=== PATIENT | female | born 1970 | race Caucasian/White ===

== ENCOUNTER 2020-11-30 11:10 | Outpatient (REF) | payer OTHER, SELFPAY ==
[2020-11-30 13:52] LABS: MANUAL DIFF FLAG NO
[2020-11-30 13:58] LABS: Basophils Percent Auto 0.5 % (0-2); Eosinophils Absolute Auto 0.1 X10*3/uL (0.0-0.4); Eosinophils Percent Auto 1.8 % (0-4); Hematocrit 43.8 % (37-47); Hemoglobin 14.7 g/dl (12.0-16.0); Imm Gran Abs Auto 0.02 X10*3/uL (0.00-0.03); Imm Gran Pct Auto 0.3 % (0.0-0.4); Lymphocytes Absolute Auto 2.4 X10*3/uL (1.2-4.9); Lymphocytes Percent Auto 36.8 % (20-40); Mean Corpuscular HGB Conc 33.6 g/dl (31.0-35.0); Mean Corpuscular Hemoglobin 30.5 pg (27.0-33.0); Mean Corpuscular Volume 90.9 fL (80-98); Mean Platelet Volume 9.9 fL (9.4-12.3); Monocytes Absolute Auto 0.5 X10*3/uL (0.1-1.2); Monocytes Percent Auto 8.2 % (2-11); Neutrophils Absolute Auto 3.4 X10*3/uL (2.0-8.3); Neutrophils Percent Auto 52.4 % (45-73); Platelet Count 317 X10*3/uL (160-400); Red Blood Count 4.82 X10*6/uL (4.20-5.50); Red Cell Distribution Width 12.6 % (11.0-16.0); White Blood Count 6.5 X10*3/uL (4.8-10.8)
[2020-11-30 14:23] LABS: Alanine Aminotransferase 33 U/L (0-31); Albumin Level 4.4 g/dL (3.5-5.0); Alkaline Phosphatase 60 U/L (39-117); Anion Gap 13 (12-20); Aspartate Amino Transferase 26 U/L (5-31); Bilirubin Total 0.6 mg/dL (0.0-1.0); Blood Urea Nitrogen 20 mg/dL (9-16); Calcium 9.6 mg/dL (8.4-10.2); Carbon Dioxide 25 mmol/L (22-29); Chloride 107 mmol/L (96-108); Estimated Glomerular Filt Rate > 60; Glucose Fasting 68 mg/dL (60-99); Potassium 4.5 mmol/L (3.3-5.1); Sodium 140 mmol/L (135-145); Total Protein 7.3 g/dL (6.5-8.0)
[2020-12-01 17:56] LABS: Follicle Stimulating Hormone 54.6 mIU/mL; Lutenizing Hormone 41.5 mIU/mL
== END 2020-11-30 11:11 | disposition home or self-care (01) ==
LOC: HO.MANLDS 11:10
PROVIDERS: PCP Physician Assistant; Visit Provider Physician Assistant
DX: Z00.00 Encounter for general adult medical examination without abnormal findings (principal); Z78.0 Asymptomatic menopausal state
CPT/HCPCS: 36415; 80053; 83001; 83002; 85025

== ENCOUNTER 2021-03-22 10:52 | Outpatient (REF) | payer OTHER, SELFPAY ==
[2021-03-22 13:02] LABS: Cholesterol 161 mg/dL; HDL Cholesterol 50 mg/dL; LDL Cholesterol Calculated 98 mg/dl; Triglycerides 67 mg/dL
== END 2021-03-22 10:53 | disposition home or self-care (01) ==
LOC: HO.MANLDS 10:52
PROVIDERS: PCP Physician Assistant; Visit Provider Physician Assistant
DX: Z00.00 Encounter for general adult medical examination without abnormal findings (principal)
CPT/HCPCS: 36415; 80061

== ENCOUNTER 2022-08-22 12:08 | Outpatient (REF) | payer OTHER, SELFPAY ==
[2022-08-22 17:42] LABS: MANUAL DIFF FLAG NO
[2022-08-22 17:58] LABS: Basophils Absolute Auto 0.1 X10*3/uL (0.0-0.2); Basophils Percent Auto 0.7 % (0-2); Eosinophils Absolute Auto 0.1 X10*3/uL (0.0-0.4); Eosinophils Percent Auto 1.7 % (0-4); Hemoglobin 15.4 g/dl (12.0-16.0); Imm Gran Abs Auto 0.02 X10*3/uL (0.00-0.03); Imm Gran Pct Auto 0.3 % (0.0-0.4); Lymphocytes Absolute Auto 2.7 X10*3/uL (1.2-4.9); Lymphocytes Percent Auto 38.6 % (20-40); Mean Corpuscular HGB Conc 32.1 g/dl (31.0-35.0); Mean Corpuscular Hemoglobin 29.7 pg (27.0-33.0); Mean Corpuscular Volume 92.7 fL (80.0-98.0); Mean Platelet Volume 9.7 fL (9.4-12.3); Monocytes Absolute Auto 0.4 X10*3/uL (0.1-1.2); Monocytes Percent Auto 6.2 % (2-11); Neutrophils Absolute Auto 3.7 x10*3/uL (2.0-8.3); Neutrophils Percent Auto 52.5 % (45-73); Platelet Count 315 X10*3/uL (160-400); Red Blood Count 5.18 X10*6/uL (4.20-5.50); Red Cell Distribution Width 12.4 % (11.0-16.0); White Blood Count 7.1 X10*3/uL (4.8-10.8)
[2022-08-22 18:47] LABS: Alanine Aminotransferase 30 U/L (0-31); Albumin Level 4.2 g/dL (3.5-5.0); Alkaline Phosphatase 63 U/L (39-117); Anion Gap 15 (12-20); Aspartate Amino Transferase 22 U/L (5-31); Bilirubin Total 0.6 mg/dL (0.0-1.0); Blood Urea Nitrogen 15 mg/dL (9-16); Calcium 9.6 mg/dL (8.4-10.2); Carbon Dioxide 25 mmol/L (22-29); Chloride 107 mmol/L (96-108); Cholesterol 185 mg/dL; Estimated Glomerular Filt Rate > 60; Glucose Random 85 mg/dL (60-115); HDL Cholesterol 51 mg/dL; LDL Cholesterol Calculated 114 mg/dl; Potassium 4.6 mmol/L (3.3-5.1); Sodium 140 mmol/L (135-145); Total Protein 7.3 g/dL (6.5-8.0); Triglycerides 101 mg/dL
[2022-08-22 18:52] LABS: Free T4 (Free Thyroxine) 0.88 ng/dL (0.71-1.85); Thyroid Stimulating Hormone 2.11 uIU/mL (0.32-4.0)
[2022-08-23 05:27] LABS: Estimated Average Glucose 103 mg/dL; Hemoglobin A1c % 5.2 %
[2022-08-23 06:19] LABS: T4 Thyroxine 7.7 ug/dL (4.5-12.0)
[2022-08-25 13:39] LABS: Thyroglobulin Antibodies <1 IU/mL (< or = 1); Thyroid Peroxidase Antibodies <1 IU/mL (<9)
== END 2022-08-22 12:09 | disposition home or self-care (01) ==
LOC: HO.MANLDS 12:08
PROVIDERS: Visit Provider Physician Assistant
DX: R73.01 Impaired fasting glucose (principal); E78.5 Hyperlipidemia, unspecified; Z83.49 Family history of other endocrine, nutritional and metabolic diseases
CPT/HCPCS: 36415; 80053; 80061; 83036; 84436; 84439; 84443; 85025; 86376; 86800

== ENCOUNTER → 2022-11-30 12:14 | Day surgery (SDC) | payer OTHER, SELFPAY ==
[2022-11-25 14:38] VITALS: BMI 41.9
[2022-11-25 14:54] VITALS: BMI 40.4
--- NOTE | 2022-11-29 08:38 | P.CONAN_ITS ---
Documented by User: Eloise Phillip NP 11/29/22 08:39 HPI - Anesthesia Eval Consult details Narrative: 52yo F for Left Lateral Rectus Eye Muscle Recession,Left Medial Rectus Resection,Right Superior Rectus Recession PCP cleared [facility] Past Medical History Medical History (Updated 11/25/22 @ 14:52 by Daysi Ba, RN) FLOR on CPAP Eczema IFG (impaired fasting glucose) Surgical History Surgical History (Updated 11/25/22 @ 14:34 by Daysi Ba, RN) H/O wisdom tooth extraction H/O LEEP Hx of section Social History Social History (Updated 11/25/22 @ 14:52 by Daysi Ba, RUTHANN) Household Members: Spouse Housing: House Are you a primary childcare center director to a significant other at home: No Do you presently have visiting nurse or other home services: No Patient Tobacco Use Status: Never used Tobacco Use of substances other than those prescribed or required for medical reasons: No Have you been hit, kicked, punched, or otherwise hurt by someone within the past year? If so, by whom?: No Are you DNR?: No Advance Directives: No Advance Directives Information Provided: Yes Advance Directives on File: No Recently lost weight without trying: No Nutrition Risks: No Nutritional Risk Patient : No FDLMP: 02/2021 Meds Allergies Allergy/AdvReac Type Severity Reaction Status Date / Time lidocaine Allergy Flushing Verified 11/29/22 08:05 Home Medications Medication Instructions Recorded Confirmed Last Taken Type betamethasone dipropionate 0.05 % 1 appl topical DAILY 11/25/22 11/25/22 Unknown History topical cream cetirizine 10 mg capsule (Zyrtec) 10 mg PO DAILY PRN Allergy Symptoms 11/25/22 11/25/22 Unknown History magnesium 250 mg tablet 500 mg PO DAILY 11/25/22 11/25/22 Unknown History cwhoiirhtgkx-ftaiwzts-sxtnjp tablet 1 tab PO DAILY 11/25/22 11/25/22 Unknown His tory phentermine 37.5 mg tablet 37.5 mg PO DAILY 11/25/22 11/25/22 Unknown History Exam Exam Date and Time: November 29, 2022 0838 Height,Weight and Vital Signs: Height 5 ft 5 in Weight 110.223 kg Pertinent Lab Results Pertinent Lab Results: Laboratory Tests 08/22/22 12:09 WBC 7.1 Hgb 15.4 Hct 48.0 H Plt Count 315 Sodium 140 Potassium 4.6 Chloride 107 Carbon Dioxide 25 BUN 15 Creatinine 0.80 Assessment and Plan Assessment Anesthesia Assessment: Chart Reviewed Documented by User: Hazel Sewell MD 11/30/22 14:20 [facility] Past Medical History Medical History (Updated 11/25/22 @ 14:52 by Daysi Ba, RUTHANN) FLOR on CPAP Eczema IFG (impaired fasting glucose) Family History Family history of problems with anesthesia: No Surgical History Surgical History (Updated 11/25/22 @ 14:34 by Daysi Ba, RUTHANN) H/O wisdom tooth extraction H/O LEEP Hx of section History of Problems with Anesthesia: No Social History Social History (Updated 11/25/22 @ 14:52 by Daysi Ba RN) Household Members: Spouse Housing: House Are you a primary childcare center director to a significant other at home: No Do you presently have visiting nurse or other home services: No Patient Tobacco Use Status: Never used Tobacco Use of substances other than those prescribed or required for medical reasons: No Have you been hit, kicked, punched, or otherwise hurt by someone within the past year? If so, by whom?: No Are you DNR?: No Advance Directives: No Advance Directives Information Provided: Yes Advance Directives on File: No Recently lost weight without trying: No Nutrition Risks: No Nutritional Risk Patient : No FDLMP: 02/2021 Meds Allergies Allergy/AdvReac Type Severity Reaction Status Date / Time lidocaine Allergy Flushing Verified 11/29/22 08:05 Home Medications Medication Instructions Recorded Confirmed Last Taken Type betamethasone dipropionate 0.05 % 1 appl topical DAILY 11/25/22 11/25/22 Unknown History topical cream cetirizine 10 mg capsule (Zyrtec) 10 mg PO DAILY PRN Allergy Symptoms 11/25/22 11/25/22 Unknown History magnesium 250 mg tablet 500 mg PO DAILY 11/25/22 11/25/22 Unknown History ibhfvbqkhptm-gcklustk-eawzee tablet 1 tab PO DAILY 11/25/22 11/25/22 Unknown History phentermine 37.5 mg tablet 37.5 mg PO DAILY 11/25/22 11/25/22 Unknown History Exam Airway Mallampati Class: II TM Dist: >3cm Neck ROM: Full Heart: rrr Lungs: cta Assessment and Plan Assessment Anesthesia Assessment: Anesthesia Plan Discussed Final Anesthetic Review Family History of Problems with Anesthesia: No History of Problems with Anesthesia: No NPO: Yes ASA Class: II Final Preanesthetic Review: No Changes in Pt Med Stat, Meds/Allgs Chart Reviewed and Consent Obtained/Reviewed Patient Risk: Intermediate Procedure Risk: Intermediate Anesthetic Plan Anesthetic Plan: GA Disposition: Standard PACU
[2022-11-30] VITALS (8 sets, daily range): BP systolic 133–160; BP diastolic 75–96; PULSE 70–87; RESP 16–18; TEMP 36.1–36.8; O2SAT 96–99
[2022-11-30] MEDS: Lactated Ringers 1,000 ML 100 ML IVCONT (13:10)
--- NOTE | 2022-11-30 15:56 | HO.OPHTHAL ---
Ophthalmology Operative Note Date of Service: 11/30/22 Narrative: Diagnosis 1. Exotropia 2. Right hypertropia. Procedures 1. Recession right lateral rectus 9 mm resection right medial rectus 6 mm 3. Recession left inferior rectus [address] Herrera anesthesia general complications none. The patient was brought to the operating room placed under general anesthesia. The eyes were prepped and draped in the usual sterile ophthalmic fashion. A lid speculum was placed in the right eye and a peritomy was created around the lateral rectus. The muscle was hooked and secured with a double-armed Vicryl suture. It was disinserted from the globe and reattached to a position 9 mm behind the original insertion. Conjunctiva was closed with interrupted Vicryl sutures. A peritomy was then made around the medial rectus and the muscle was hooked and secured with a Junior muscle clamp. The overlying fascial attachments were dissected free and a 6 mm resection marked off with cautery. The resection point was secured with a double-armed Vicryl suture and the distal muscle resected. The resection point was then drawn forward to the original insertion and conjunctiva was closed with interrupted Vicryl sutures. The lid speculum was transferred to the left eye where a peritomy was created around the inferior rectus muscle. The muscle was hooked and secured with a double-armed Vicryl suture and disinserted from the globe. It was reattached to a position 2 mm behind the original insertion. Conjunctiva was closed with interrupted Vicryl sutures. The patient was then awoken from general anesthesia and discharged to postoperative recovery in good condition.
[2022-11-30] MEDS: Acetaminophen 325 MG TABLET 650 MG PO (16:40)
== END | disposition home or self-care (01) ==
PROVIDERS: PCP Internal Medicine; Visit Provider Ophthalmology
PROC: (CPT 67314; principal; 2022-11-30 14:10)
DX: H50.112 Monocular exotropia, left eye (principal); H50.21 Vertical strabismus, right eye; R73.01 Impaired fasting glucose; L30.9 Dermatitis, unspecified; G47.33 Obstructive sleep apnea (adult) (pediatric); Z79.51 Long term (current) use of inhaled steroids; Z99.89 Dependence on other enabling machines and devices; Z79.899 Other long term (current) drug therapy; Z88.8 Allergy status to other drugs, medicaments and biological substances
CPT/HCPCS: 67314; 67312; J1100; J2405; J2550; J3010

== ENCOUNTER 2025-01-14 07:39 | Outpatient (REF) | payer OTHER, SELFPAY ==
--- OUTSIDE RECORDS SUMMARY | 2025-01-14 08:02 | XMS_ITS | Encounter Summary ---
Author Organization [facility] Address [address] [place] [address] Phone Care Team Providers Care Weighing Station Operator Name Role Phone Dwayne Palencia DO Unavailable Bina Gonzales CNM Unavailable Mady MeridaC Unavailable [phone] Elmer Alfredo MD Unavailable Salina Grubbs LADLE REPAIRMAN Unavailable Debo Wild MD Unavailable [phone] Mallorie Le MD Unavailable [phone] Shae Crowder LADLE REPAIRMAN Unavailable Dwayne Palencia DO Primary Care Provider [phone] Encounter Details Date Type Department Care Team (Late st Contact Info) Description 09/11/2019 Ancillary Orders Virtual Department [address] [place] [address] Dwayne Palencia DO [address] [facility] [place] [address] [place] [address] Abnormal mammogram Social History Tobacco Use Types Packs/Day Years Used Date Smoking Tobacco: Never Smokeless Tobacco: Never Alcohol Use Standard Drinks/Week Comments Never 0 (1 standard drink = 0.6 oz pur e alcohol) Comments No Sex and Gender Information Value Date Recorded Sex Assigned at Female 10/03/2021 11:46 AM EDT Legal Sex Female 9:37 PM EDT Gender Identity Female 10/03/2021 11:46 AM EDT Sexual Orientation Straight 10/03/2021 11 :46 AM EDT documented as of this encounter Plan of Treatment Upcoming Encounters Date Type Department Care Team (Late st Contact Info) Description 08/30/2024 Procedure Pass [address] [address] 04/14/2025 12:30 PM EDT Appointment [facility] [address] [place] [address] Dwayne Palencia DO [address] [facility] [place] [address] documented as of this encounter Results * BI US BREAST LIMITED (LEFT) (09/30/2019 1:32 PM EDT) Anatomical Region Laterality Modality Breast Left, Breast Bilateral Left Ul trasound 09/30/2019 1:37 PM EDT Impressions 09/30/2019 1:38 PM EDT Lesion demonstrated on mammography represents a simple cyst. The results of this examination were relayed to the patient by the technologist. BI-RADS CATEGORY 2 - BENIGN POS [id number] Narrative 09/30/2019 1:38 PM EDT Comparisons made with current mammographic study. At the approximate 2-3:00 position 5-6 cm from the nipple is a sharply circumscribed anechoic lesion measuring 9 x 4 x 10 mm in span, displaying enhanced through-transmission and satisfying the sonographic criteria for simple cyst. This correlates well in size and location to the mammographic abnormality. Procedure Note Janina Matson MD - 09/30/2019 Comparisons made with current mammographic study. At the approximate2-3:00 position 5-6 cm from the nipple is a sharply circumscribed anechoiclesion measuring 9 x 4 x 10 mm in span, displaying enhancedthrough-transmission and satisfying the sonographic criteria for simplecyst. This correlates well in size and location to the mammographicabnormality. IMPRESSION: Lesion demonstrated on mammography represents a simple cyst. The results of this examination were relayed to the patient by thetechnologist. BI-RADS CATEGORY 2 - BENIGN POS [id number] us Dwayne Palencia DO IMG US BREAST Final Result * BI MAMMOGRAM DIAGNOSTIC WITH TOMOSYNTHESIS NO CAD (LEFT) (09/30/2019 1:00 PM EDT) Anatomical Region Laterality Modality Breast Left Left Mammography 09/30/2019 1:14 PM EDT Impressions 09/30/2019 1:28 PM EDT Lesion demonstrated on 09/09/2019 represents a simple cyst. In the absence of clinically significant findings routine screening mammography would appear adequate for follow-up. The results of this examination were relayed to the patient by the technologist. BI-RADS CATEGORY 2 - BENIGN DENSITY: There are scattered fibroglandular densities. Narrative 09/30/2019 1:28 PM EDT Comparisons made with prior study of 09/09/2019. Full-field mediolateral C view and tomographic images disclose the presence of a sharply circumscribed slightly lobular 9 mm diameter lesion in the upper outer quadrant at the approximate 2:30 o'clock position. This was subsequently assessed on ultrasound and found to represent a simple cyst. us Dwayne Palencia DO IMG MG EXAMS Final Result documented in this encounter Visit Diagnoses Diagnosis Abnormal mammogram Abnormal mammogram, unspecified Abnormal mammogram Abnormal mammogram, unspecified Abnormal mammogram Abnormal mammogram, unspecified documented in this encounter Care Teams Weighing Station Operator Relationship Specialty Start Date End Date Dwayne Palencia DO [email or web address] PCP - General 02/09/17 Dwayne Palencia DO Historical LMR Provider 11/27/16 Bina Gonzales CNM [address] [place] [address] Historical LMR Provider 11/27/16 2 Mady Merida PA-C [address] [place] [address] [facility], [place] [address] Historical LMR Provider 11/27/16 02/13/21 Elmer Alfredo MD [address] [place] [address] Historical LMR Provider 11/27/16 Salina Grubbs NP [address] [place] [address] [email or web address] Historical LMR Provider 11/27/16 2 Debo Wild MD [address] [place] [address] Historical LMR Provider 11/27/16 2 Mallorie Le MD [address] [place] [address] Historical LMR Provider 11/27/16 2 Shae Crowder NP [address] [place] [address] Historical LMR Provider 11/27/16 2 documented as of this encounter Additional Source Comments The information contained in this document represents components of the legal health record. It is not the complete legal health record.[facility]
--- OUTSIDE RECORDS SUMMARY | 2025-01-14 08:02 | XMS_ITS | Encounter Summary ---
Author Organization [facility] Address [address] [place] [address] Phone Care Team Providers Care Clerical Assigner Name Role Phone Dwayne Palencia DO Unavailable Bina Gonzales CNM Unavailable Mady MeridaC Unavailable [phone]- [phone] Elmer Alfredo MD Unavailable Salina Grubbs HAND BOOTMAKER Unavailable Debo Wild MD Unavailable [phone] Mallorie Le MD Unavailable [phone] Shae Crowder HAND BOOTMAKER Unavailable Dwayne Palencia DO Primary Care Provider [phone] Encounter Details Date Type Department Care Team (Late st Contact Info) Description 07/08/2020 Ancillary Orders Virtual Department [address] [place] [address] Dwayne Palencia DO [address] [facility] [place] [address] [email or web address] Breast screening Social History Tobacco Use Types Packs/Day Years [...] st Contact Info) Description 08/30/2024 Procedure Pass [address] [address] 04/14/2025 12:30 PM EDT Appointment [facility] [address] [place] [address] Dwayne Palencia DO [address] [facility] [place] [address] documented as of this encounter Results * BI MAMMOGRAM SCREENING WITH TOMOSYNTHESIS WITH CAD (BILATERAL) (09/21/2020 9:38 AM EDT) Anatomical Region Laterality Modality Breast Left, Breast Right, Breast Bilateral Bila teral Mammography 09/21/2020 11:1 7 AM EDT Impressions 09/21/2020 11:20 AM EDT No findings suspicious for malignancy. In the absence of a worrisome palpable abnormality, annual screening mammography is recommended. BI-RADS CATEGORY: 2 - Benign finding. DENSITY: There are scattered fibroglandular densities. Narrative 09/21/2020 11:20 AM EDT COMPARISON: 01/20/2014 through 09/09/2019. Bilateral 3-D tomosynthesis with 2-D reconstructions in the CC and MLO projection. Computer-aided detection system also utilized. No new mass, asymmetry, architectural distortion or suspicious calcifications have become apparent on either side. Previously proven cyst in the left upper outer quadrant and small circumscribed masses/nodes in the right upper outer quadrant unchanged. Procedure Note Jose Quintero MD - 09/21/2020 COMPARISON: 01/20/2014 through 09/09/2019. Bilateral 3-D tomosynthesis with 2-D reconstructions in the CC and MLOprojection. Computer-aided detection system also utilized. No new mass, asymmetry, architectural distortion or suspiciouscalcifications have become apparent on either side. Previously proven cyst in the left upper outer quadrant and smallcircumscribed masses/nodes in the right upper outer quadrant unchanged. IMPRESSION: No findings suspicious for malignancy. In the absence of a worrisomepalpable abnormality, annual screening mammography is recommended. BI-RADS CATEGORY: 2 - Benign finding. DENSITY: There are scattered fibroglandular densities. us Dwayne Palencia DO IMG MG EXAMS Final Result documented in this encounter Visit Diagnoses Diagnosis Breast screening Breast screening, unspecified Breast screening Breast screening, unspecified documented in this encounter Care Teams Clerical Assigner Relationship Specialty Start Date End Date Dwayne Palencia DO PCP - General 02/09/17 Dwayne Palencia DO Historical LMR Provider 11/27/16 Bina Gonzales CNM [address] [place] [address] Historical LMR Provider 11/27/16 2 Mady Merida PA-C [address] [place] [address] [facility], [place] [address] Historical LMR Provider 11/27/16 02/13/21 Elmer Alfredo MD [address] [place] [address] Historical LMR Provider 11/27/16 Salina Grubbs NP [address] [place] [address] [email or web address] Historical LMR Provider 11/27/16 2 Debo Wild MD [address] [place] [address] Historical LMR Provider 11/27/16 2 Mallorie Le MD [address] [place] [address] Historical LMR Provider 11/27/16 2 Shae Crowder NP [address] [place] [address] Historical LMR Provider 11/27/16 2 documented as of this encounter Additional Source Comments The information contained in this document represents components of the legal health record. It is not the complete legal health record.[facility]
--- OUTSIDE RECORDS SUMMARY | 2025-01-14 08:03 | XMS_ITS | Encounter Summary ---
Author Organization [facility] Address [address] [place] [address] Phone Care Team Providers Care Bike Designer Name Role Phone Dwayne Palencai DO Unavailable Bina Gonzales CNM Unavailable Mady MeridaC Unavailable [phone] Elmer Alfredo MD Unavailable Salina Grubbs COMPUTER OPERATIONS MANAGER Unavailable Debo Wild MD Unavailable Mallorie Le MD Unavailable [phone] Shae Crowder COMPUTER OPERATIONS MANAGER Unavailable Dwayne Palencia DO Primary Care Provider [phone] Encounter Details Date Type Department Care Team (Late st Contact Info) Description 07/08/2020 Procedure Pass [facility] [address] [place] [address] Social History Tobacco Use Types Packs/Day Years [...] st Contact Info) Description 08/30/2024 Procedure Pass [address] [address] 04/14/2025 12:30 PM EDT Appointment [address] [address] Dwayne Palencia DO [address] [place] [address] documented as of this encounter Visit Diagnoses Not on filedocumented in this encounter Care Teams Bike Designer Relationship Specialty Start Date End Date Dwayne Palencia DO PCP - General 02/09/17 Dwayne Palencia DO Historical LMR Provider 11/27/16 Bina Gonzales CNM [address] [place] [address] Historical LMR Provider 11/27/16 2 Mady Merida PA-C [address] [place] [address] [facility], [place] [address] Historical LMR Provider 11/27/16 02/13/21 Elmer Alfredo MD [address] [place] [address] Historical LMR Provider 11/27/16 Salina Grubbs NP [address] [place] [address] [email or web address] Historical LMR Provider 11/27/16 2 Debo Wild MD [address] [place] [address] Historical LMR Provider 11/27/16 2 Mallorie Le MD [address] [place] [address] Historical LMR Provider 11/27/162 2 Shae Crowder NP [address] [place] [address] Historical LMR Provider 11/27/16 2 documented as of this encounter Additional Source Comments The information contained in this document represents components of the legal health record. It is not the complete legal health record.[facility]
--- OUTSIDE RECORDS SUMMARY | 2025-01-14 08:03 | XMS_ITS | Encounter Summary ---
Author Organization [facility] Address [address] [place] [address] Phone Care Team Providers Care Receiving Teller Name Role Phone Dwayne Palencia Unavailable KekeDwayne talley Primary Care Provider [phone] Encounter Details Date Type Department Care Team (Late st Contact Info) Description 08/15/2023 Procedure Pass [facility], [address] [address] Social History Tobacco Use Types Packs/Day Years Used Date Smoking Tobacco: Never Smokeless Tobacco: Never Alcohol Use Standard Drinks/Week Comments Never 0 (1 standard drink = 0.6 oz pur e alcohol) Education Answer Date Recorded Are you interested in more education? Not on kourtney e 06/03/2022 Are you concerned about learning? Not on file 06/03/2022 No 06/03/2022 No 06/03/2022 Digital Access Answer Date Recorded No 07/02/2022 No 07/02/2022 Reliable internet access at home? Not on file 07/02/2022 Device with a working camera? Not on file Intimate Partner Violence Answer Date R ecorded Are you denied basic needs s uch as food, clothing, or medical care? No 05/23/2023 In the past 12 months have y ou been in a relationship with a person who hurts, threatens, or tries to control you? No 05/23/2023 Are you denied basic needs s uch as food, clothing, or medical care? No 05/23/2023 In the past 12 months have y ou been in a relationship with a person who hurts, threatens, or tries to control you? No 05/23/2023 Comments No Sex and Gender Information Value Date Recorded Sex Assigned at Female 10/03/2021 11:46 AM EDT Legal Sex Female 9:37 PM EDT Gender Identity Female 10/03/2021 11:46 AM EDT Sexual Orientation Straight 10/03/2021 11 :46 AM EDT documented as of this encounter Plan of Treatment Upcoming Encounters Date Type Department Care Team (Late st Contact Info) Description 08/30/2024 Procedure Pass [address] [address] 04/14/2025 12:30 PM EDT Appointment [address] [address] Dwayne Palencia DO [address] [facility] [place] [address] documented as of this encounter Visit Diagnoses Not on filedocumented in this encounter Care Teams Receiving Teller Relationship Specialty Start Date End Date Dwayne Palencia DO PCP - General 02/09/17 Dwayne Palencia DO Historical LMR Provider 11/27/16 documented as of this encounter Additional Source Comments The information contained in this document represents components of the legal health record. It is not the complete legal health record.[facility]
--- OUTSIDE RECORDS SUMMARY | 2025-01-14 08:03 | XMS_ITS | Encounter Summary ---
Author Organization [facility] Address [address] [place] [address] Phone Care Team Providers Care Electronic Train Control Technician Name Role Phone Dwayne Palencia DO Unavailable Bina Gonzales CNM Unavailable Mady MeridaC Unavailable [phone] Elmer Alfredo MD Unavailable Salina Grubbs MINERAL ECONOMIST Unavailable Debo Wild MD Unavailable [phone] Mallorie Le MD Unavailable [phone] Shae Crowder MINERAL ECONOMIST Unavailable Dwayne Palencia DO Primary Care Provider [phone] Encounter Details Date Type Department Care Team (Late st Contact Info) Description 02/11/2019 Ancillary Orders Virtual Department [address] [place] [address] Dwayne Palencia DO [address] [place] [address] [place] [address] Breast screening Social History Tobacco Use Types [...] st Contact Info) Description 08/30/2024 Procedure Pass [address] [address] 04/14/2025 12:30 PM EDT Appointment [address] [address] Dwayne Palencia DO [address] [place] [address] [email or web address] documented as of this encounter Results * (ABNORMAL) BI MAMMOGRAM SCREENING WITH TOMOSYNTHESIS WITH CAD (BILATERAL) (09/09/2019 10:11 AM EDT) Anatomical Region Laterality Modality Breast Left, Breast Right, Breast Bilateral Bila teral Mammography 09/09/2019 10:4 1 AM EDT Addenda Addendum by Luna Olea MD on 09/11/2019 4:10 PM EDT ADDENDUM: Correction: LEFT RECOMMENDATION DUE DATE: 1 Month Additional Imaging RIGHT RECOMMENDATION DUE DATE: 12 months Mammography Screening Impressions 09/09/2019 10:45 AM EDT Additional imaging recommended on the left cord is probably a cyst. Annual screening recommended on the right where no interval change is seen. Call back views: Full-field true lateral view with tomosynthesis, left breast ultrasound BI-RADS CATEGORY 0 - INCOMPLETE NEED ADDITIONAL IMAGING * DENSITY: There are scattered fibroglandular densities. LEFT RECOMMENDATION DUE DATE: 1 Month Additional Imaging RIGHT RECOMMENDATION DUE DATE: 1 Month Mammography Screening Narrative 09/09/2019 10:45 AM EDT Bilateral full-field digital screening mammography is obtained and read in conjunction with computer-aided detection. Tomosynthesis as well as 2-D C view imaging of both breasts in two planes also obtained. Comparison made to multiple prior, most recent April 16, 2018, and most remote January 14, 2013. No architectural distortion, worrisome asymmetry, or suspicious calcification is identified. No skin or nipple finding of concern is appreciated. There is a new, faint, lobulated but well-circumscribed mass in the upper outer left breast which will likely present to be a cyst but additional imaging is recommended. It measures just under centimeter. We will attempt to recall the patient. Procedure Note Luna Olea MD - 09/09/2019 Bilateral full-field digital screening mammography is obtained and read inconjunction with computer-aided detection. Tomosynthesis as well as 2-D Cview imaging of both breasts in two planes also obtained. Comparison madeto multiple prior, most recent April 16, 2018, and most remote January. No architectural distortion, worrisome asymmetry, or suspiciouscalcification is identified. No skin or nipple finding of concern isappreciated. There is a new, faint, lobulated but well-circumscribed massin the upper outer left breast which will likely present to be a cyst butadditional imaging is recommended. It measures just under centimeter. Wewill attempt to recall the patient. IMPRESSION: Additional imaging recommended on the left cord is probably a cyst. Annualscreening recommended on the right where no interval change is seen. Call back views: Full-field true lateral view with tomosynthesis, leftbreast ultrasound BI-RADS CATEGORY 0 - INCOMPLETE NEED ADDITIONAL IMAGING * DENSITY: There are scattered fibroglandular densities. LEFT RECOMMENDATION DUE DATE: 1 Month Additional Imaging RIGHT RECOMMENDATION DUE DATE: 1 Month Mammography Screening Dwayne Palencia DO [facility] MG EXAMS Edited Result - Final documented in this encounter Visit Diagnoses Diagnosis Breast screening Breast screening, unspecified Breast screening Breast screening, unspecified documented in this encounter Care Teams Electronic Train Control Technician Relationship Specialty Start Date End Date Dwayne Palencia DO PCP - General 02/09/17 Dwayne Palencia DO Historical LMR Provider 11/27/16 Bina Gonzales CNM [address] [place] [address] Historical LMR Provider 11/27/16 2 aMdy Merida PA-C [address] [place] [address] Orth[facility], [place] [address] [email or web address] Historical LMR Provider 11/27/16 02/13/21 Elmer Alfredo MD [address] [place] [address] Historical LMR Provider 11/27/16 Salina Grubbs NP [address] [place] [address] [email or web address] Historical LMR Provider 11/27/16 2 Debo Wild MD [address] [place] [address] Historical LMR Provider 11/27/16 2 Mallorie Le MD [address] [place] [address] Historical LMR Provider 11/27/16 2 Shae Crowder NP [address] [place] [address] Historical LMR Provider 11/27/16 2 documented as of this encounter Additional Source Comments The information contained in this document represents components of the legal health record. It is not the complete legal health record.[facility]
--- OUTSIDE RECORDS SUMMARY | 2025-01-14 08:03 | XMS_ITS | Encounter Summary ---
Author Organization [facility] Address [address] [place] [address] Phone Care Team Providers Care Chief Information Officer Name Role Phone Dwayne Palencia DO Unavailable Bina Gonzales CNM Unavailable Mady MeridaC Unavailable [phone] Elmer Alfredo MD Unavailable Salina Grubbs HYDROGENATION OPERATOR Unavailable Debo Wild MD Unavailable [phone] Mallorie Le MD Unavailable [phone] Shae Crowder HYDROGENATION OPERATOR Unavailable Dwayne Palencia DO Primary Care Provider [phone] Encounter Details Date Type Department Care Team (Late st Contact Info) Description 08/27/2018 Procedure Pass [facility] Endoscopy Admitting Dept Virtual Department [address] [place] [id number] Social History Tobacco Use Types Packs/Day Years [...] st Contact Info) Description 08/30/2024 Procedure Pass [address] [address] 04/14/2025 12:30 PM EDT Appointment [address] [address] Dwayne Palencia DO [address] [place] [address] documented as of this encounter Visit Diagnoses Not on filedocumented in this encounter Care Teams Chief Information Officer Relationship Specialty Start Date End Date Dwayne Palencia DO PCP - General 02/09/17 Dwayne Palencia DO Historical LMR Provider 11/27/16 Bina Gonzales CNM [address] [place] [address] Historical LMR Provider 11/27/16 2 Mady Merida PA-C [address] [place] [address] Orth[facility] Sports Medicine, [place] [address] Historical LMR Provider 11/27/16 02/13/21 Elmer Alfredo MD [address] [place] [address] Historical LMR Provider 11/27/16 Salina Grubbs NP [address] [place] [address] [email or web address] Historical LMR Provider 11/27/16 2 Debo Wild MD [address] [place] [address] Historical LMR Provider 11/27/162 2 Mallorie Le MD [address] [place] [address] Historical LMR Provider 11/27/162 2 Shae Crowder NP [address] [place] [address] Historical LMR Provider 11/27/16 2 documented as of this encounter Additional Source Comments The information contained in this document represents components of the legal health record. It is not the complete legal health record.[facility]
--- OUTSIDE RECORDS SUMMARY | 2025-01-14 08:03 | XMS_ITS | Clinical Summary ---
Author Organization [facility] Address [address] [place] [address] Phone Care Team Providers Care Word Processing Operator Name Role Phone Gigi Johnson Unavailable KekeGigi talley Primary Care Provider [phone] Allergies No known active allergies Medications cholecalciferol , vitamin D3, (VITAMIN D3 ORAL) Take by mouth. Activ e sertraline (ZOLOFT) 50 MG tablet Take 50 mg by mouth daily. 0 Active cetirizine (ZYRTEC) 10 MG tablet Take 10 mg by mouth daily. Active gabapentin (NEURONTIN) 300 MG capsule Take 300 mg by mouth 3 (three) times a day. Active gabapentin (NEURONTIN) 100 MG capsule Take 100 mg by mouth 3 (three) times a day. Active carBAMazepine (TEGRETOL XR) 400 MG 12 hr tablet Take 1 tablet (400 mg total) by mouth 2 (two) times a day. 60 tablet 4 Active morphine (MSIR) 15 MG tablet Take 0.5 tablets (7.5 mg total) by mouth every 6 (six) hours as needed for pain (specific location in comments). Partial fill ok 10 tablet 4 Active Additional Information Patient not taking.Reported on 11/13/2023 magnesium gluconate (MAGONATE) 500 mg (27 mg elemental) Tab 0 Refill(s), 0 Refills, 07/10/23 14:18:00 EDT, Partial fill upon patient request if the prescription is for a schedule II opioid drug. 4 Active phentermine (ADIPEX-P) 37.5 mg tablet take 1 tablet by mouth every day for 30 days Active multivit with minerals/lutein (MULTIVITAMIN 50 PLUS ORAL) Take by mouth. 3 Active Active Problems Problem Noted Date Diagnosed Date Achilles tendinitis of right lower extremity 08/2023 Arthritis of right knee 08/26/2019 Obesity 08/26/2019 Ovarian cyst 08/26/2019 Arthralgia of lower leg 08/26/2019 Anxiety 07/28/2017 Vitamin D deficiency 07/28/2017 Family History Medical History Relation Comments Breast cancer Paternal Grandmother Relation Status Comments Paternal Grandmother Social History Tobacco Use Types Packs/Day Years [...] Orientation Straight 10/03/2021 11 :46 AM EDT Last Filed Vital Signs Vital Sign Reading Time Taken Comments Blood Pressure 162/104 05/23/2023 8:20 PM EDT Pulse 76 05/23/2023 8:20 PM EDT Temperature 36.5 C (97.7 F) 05/23/2023 8:20 PM EDT Respiratory Rate 20 05/23/2023 8:20 PM EDT Oxygen Saturation 97% 05/23/2023 8:20 PM EDT Inhaled Oxygen Concentration - - Weight 109 kg (240 lb 6.4 oz) 11/13/2023 9:56 AM EDT Height 166.4 cm (5' 5.5 ) 11/13/2023 9:56 AM EDT Body Mass Index 39.4 11/13/2023 9:56 AM EDT Plan of Treatment Upcoming Encounters Date Type Department Care Team (Late st Contact Info) Description 08/30/[address] [address] 04/14/2025 12:30 PM EDT Appointment [address] [address] Gigi Johnson, DO [address] [facility] [place] [address] [place] [address] Health Maintenance Due Date Last Done Comments LIPID PANEL 1970 DEPRESSION SCREENING 1980 HEPATITIS C SCREENING 02/07/1986 HIV ONE-TIME SCREENING (18-65 YEARS) 02/07/1986 PAP SMEAR 02/07/1989 COLOGUARD 02/07/2013 FIT TEST 02/07/2013 FOBT 02/07/2013 SIGMOIDOSCOPY 02/07/2013 VIRTUAL COLONOSCOPY 02/07/2013 PNEUMOCOCCAL VACCINES (50+ years) (1 of 1 - PCV) 02/07/2018 ZOSTER VACCINES (1 of 2) 02/07/2018 INFLUENZA VACCINE (#1) 2024 01/06/2014 COVID-19 VACCINE ( - season) 2024 01/16/2021, 05/16/2020, 04/25/2020 MAMMOGRAM 11/26/2025 11/27/2023, 10/07, 10/04/2021, Additional history exists SCREENING FOR DIABETES 05/22/2026 05/23/2023 Adult Td,Tdap Booster 08/06/2028 08/06/2018, 009 COLONOSCOPY 08/27/2028 08/27/2018 COLORECTAL CANCER SCREENING 08/27/2028 RSV VACCINE (1 - 1-dose 75+ series) 02/07/2043 SMOKING STATUS SCREENING (Once After 26 Yrs) Completed 11/27/2023 HEPATITIS A VACCINES Aged Out No long er eligible based on patient's age to complete this topic HIB VACCINES Aged Out No longer eligi ble based on patient's age to complete this topic MENINGOCOCCAL VACCINES (ACWY) Aged Out No longer eligible based on patient's age to complete this topic MENINGOCOCCAL VACCINES (B) Aged Out N o longer eligible based on patient's age to complete this topic Medical Devices Not on file Procedures Procedure Name Priority Date/Time Associated Diagnosis Comments BI MAMMOGRAM SCREENING WITH TOMOSYNTHESIS WITH CAD (BILATERAL) Routine 11/27/2023 11:35 AM EDT Breast screening ENDOSCOPY, COLON 08/27/2018 7:26 AM EDT from Last 3 Months or Most Recently Relevant to Health Maintenance Results * BI MAMMOGRAM SCREENING WITH TOMOSYNTHESIS WITH CAD (BILATERAL) (11/27/2023 11:35 AM EDT) Anatomical Region Laterality Modality Breast Left, Breast Right, Breast Bilateral Bila teral Mammography 11/28/2023 3:25 PM EDT Impressions 11/28/2023 3:30 PM EDT No mammographic evidence of malignancy in either breast. Annual screening mammography is recommended. BI-RADS 2 BENIGN The patient will be notified of the results and recommendations. Narrative 11/28/2023 3:30 PM EDT BI MAMMOGRAM SCREENING WITH TOMOSYNTHESIS WITH CAD (BILATERAL) Additional patient information: Screening. COMPARISON: Comparison is made with relevant prior imaging. Breast composition: There are scattered areas of fibroglandular density. FINDINGS: Benign appearing stable grouped calcifications in the 12:00 position left breast. No abnormal masses, suspicious calcifications, or other significant findings are identified mammographically in either breast. There has been no significant interval change. Procedure Note Milagro Ortiz MD - 11/28/2023 BI MAMMOGRAM SCREENING WITH TOMOSYNTHESIS WITH CAD (BILATERAL) Additional patient information: Screening. COMPARISON: Comparison is made with relevant prior imaging. Breast composition: There are scattered areas of fibroglandular density. FINDINGS: Benign appearing stable grouped calcifications in the 12:00 position leftbreast. No abnormal masses, suspicious calcifications, or other significantfindings are identified mammographically in either breast. There has been no significant interval change. IMPRESSION: No mammographic evidence of malignancy in either breast. Annual screening mammography is recommended. BI-RADS 2 BENIGN The patient will be notified of the results and recommendations. us Provider Not In System PhD IMG MG EXAMS Final Result * ENDOSCOPY, COLON (08/27/2018 7:26 AM EDT) Narrative Transcriptions Zion Duran MD - 08/27/2018 7:26 AM EDT Patient Name: Jessica Jake Attending MD:: ZION DURAN MD, Procedure Date: 08/27/2018 7:26 AM Date of : 1970 Age: 48 Admit Type: Outpatient Gender: Female Room: [place] [address] Referring MD: GIGI JOHNSON DO Exam Type: Colonoscopy Indications: Screening for colorectal malignant neoplasm Medications: Monitored Anesthesia Care Procedure: Informed consent was obtained from the patient after discussion of the indications, limitations,alternatives, benefits, and risks of the procedure. Risksspecifically discussed include but are not limited to medication reactions, missed lesions, bleeding, perforation, orthe need for emergent surgery. Throughout the procedure, the patient's blood pressure, pulse, end-tidal CO2, and oxygen saturations were monitored continuously. The Olympus adult variable colonoscope [id number] #4 was introduced through the anus and advanced to the cecum, identified by appendiceal orifice and ileocecal valve.The colonoscopy was performed without difficulty. Thepatient tolerated the procedure well. The quality of the bowel preparation was excellent. The quality of the bowel preparation was evaluated using the BBPS ([place] Bowel Preparation Scale) with scores of: Right Colon = 3, Transverse Colon = 3 and Left Colon = 3 (entire mucosa seen well with no residual staining, small fragments of stool or opaque liquid). The total BBPS score equals9. Complications: No immediate complications. Estimated blood loss:None. Findings: The perianal exam findings include non-thrombosedexternal hemorrhoids. Internal hemorrhoids were found during retroflexion.The hemorrhoids were mild. The exam was otherwise normal throughout the examined colon. Impression: - Non-thrombosed external hemorrhoids found on perianal exam. - Internal hemorrhoids. - No specimens collected. Recommendation: - Discharge patient to home. - Repeat colonoscopy in 10 years for screeningpurposes. ZION DURAN MD, 08/27/2018 8:06:00 AM This report has been signed electronically. Number of Addenda: 0 Note Initiated On: 08/27/2018 7:26 AM Procedure Code(s): --- Professional --- 59428, Colonoscopy, flexible; diagnostic, including collection of specimen(s) by brushing or washing, when performed (separateprocedure) --- Technical --- 22464, Colonoscopy, flexible; diagnostic, including collection of specimen(s) by brushing or washing, when performed (separateprocedure) Diagnosis Code(s): --- Professional --- Z12.11, Encounter for screening for malignant neoplasm of colon K64.4, Residual hemorrhoidal skin tags K64.8, Other hemorrhoids --- Technical --- Z12.11, Encounter for screening for malignant neoplasm of colon K64.4, Residual hemorrhoidal skin tags K64.8, Other hemorrhoids CPT copyright 2016 [employer]. All rights reserved. The codes documented in this report are preliminary and upon world travel counselor reviewmay be revised to meet current compliance requirements. [address] [place] [address] us Rice Altaf Slime DO GI PROCEDURE ORDERABLES Final Re sult from Last 3 Months or Most Recently Relevant to Health Maintenance Insurance O O HMO HMO HMO HMO O O O Care Teams Word Processing Operator Relationship Specialty Start Date End Date Slime Gigi SolitarioDO PCP - General 02/09/17 Gigi Johnson DO Historical LMR Provider 11/27/16 Additional Source Comments The information contained in this document represents components of the legal health record. It is not the complete legal health record.[facility]
--- OUTSIDE RECORDS SUMMARY | 2025-01-14 08:04 | XMS_ITS | Continuity of Care Document ---
Author Organization [facility], [facility] Address [address] [facility] [place] [address] [place] [address] Assessment No assessment recorded. Plan of Treatment Reminders Order Date Submit Date Provider Last Modified By Organization Details Last Modified Time Details Appointments None recorded. Lab vitamin D, 25-hydroxy , total, serum 2024 025 [facility] (Outpatient), [address] [place] [address], [address], 5 10:45:26 CMP, serum or plasma 2024 025 [facility] (Outpatient), [address] [place] [address], [address], 5 10:45:26 CBC w/ auto diff 2024 025 [facility] (Outpatient), [address] [place] [address], [address], 5 10:45:27 lipid panel, blood 2024 025 [facility] (Outpatient), [address] [place] [address], [address], 5 10:45:26 hemoglobin A1c, QN, blood 2024 025 [facility] (Outpatient), [address] [place] [address], [address], 5 10:45:27 TSH + free T4, serum 2024 025 [facility] (Outpatient), [address] [place], [address], 5 10:45:27 Referral None recorded. Procedures None recorded. Surgeries None recorded. Imaging None recorded. Medication Orders bupropion HCl XL 150 mg 24 hr tablet, extended release 2024 025 [facility], [address] [place], [address], 5 10:46:43 Patient TargetsNo targets recorded. Patient InstructionsNo instructions recorded. Reason for Referral None Reported. Problems Name Problem SNOMED Code Status Onset Date Resolution Date Notes Provider Name and Address Organization Details Recorded Time Vitamin D deficiency 07762532 Active 2017 Not Available [facility] 1 09:43:10 Anxiety 38525122 Active 2017 TERESA TORRE [address] [place] [address], [address], [facility] 5 10:46:08 Eczema 75731381 Active 2021 TERESA TORRE [address] [place] [address], [address], [facility] 2 11:58:04 Spasm of back muscles 504081467 Active 2021 Dwayne Palencia DO [address] [place], [address], [facility] 2 09:47:48 Impaired fasting glycemia 524298495 Active 2022 TERESA TORRE [address] [place] [address], [address], [facility] 3 11:31:22 Obesity 255637783 Active 2022 TERESA TORRE [address] [place] [address], [address], [facility] 3 10:05:46 Trigeminal neuralgia 34660698 Active 2023 TERESA TORRE [address] [place] [address], [address], [facility] 4 10:08:28 Migraine 62362206 Active 2023 TERESA TORRE [address] [place] [address], [address], [facility] 4 14:42:19 Infection of ear 413746588 Active 2023 TERESA TORRE [address] [place] [address], [address], [facility] 4 11:54:46 Headache 04985936 Active 2023 TERESA TORRE [address] [place] [address], [address], [facility] 4 13:56:41 Generalize d rash 920061507 Active 2024 TERESA TORRE [address] [place] [address], [address], [facility] 5 09:20:06 Motion sickness 67709119 Active 2024 TERESA TORRE [address] [place] [address], [address], [facility] 5 09:06:27 Eruption of skin of face Active 2024 TERESA TORRE [address] [place] [address], [address], [facility] 5 14:49:20 Acute sinusitis 08884305 Active 2024 TERESA TORRE [address] [place] [address], [address], [facility] 5 14:50:53 Problem Notes None recorded. Procedures Surgical History Date Name Laterality Status Provider Name and Address Organization Details Recorded Time 9 Most Recent Mammogram completed Nikki Ralph [facility] 08/06/2018 08:17:54 extraction of wisdom tooth completed Nikki Ramo [facility] 08/06/2018 08:18:37 LEEP completed Nikki Ramo [facility] 08/06/2018 08:18:56 section completed [facility] 08/06/2018 08:19:07 Imaging Results None recorded. Procedure Notes None recorded. Medical Equipment None Reported. Allergies No known drug allergies Medications Name Sig Start Date Stop Date Status Note LastModified by Organization Details LastModified Time cyclobenzap rine 10 mg tablet TAKE 1 TABLET BY MOUTH THREE TIMES A DAY FOR 10 DAYS 12/12 completed Not Available Not Available Not Available silver sulfadiazin e 1 % topical cream APPLY 1/16 INCH (1.5 MM) THICK LAYER TO ENTIRE BURN AREA 2 TIMES PER DAY 08/22 completed Not Available Not Available Not Available magnesium 500 mg tablet Take by oral route. 01/13 completed Not Available Not Available Not Available prednisone 10 mg tablet TAKE 5 TABS DAILY FOR 2 DAYS, 4 TABS X2 DAYS,3 TABS X2 DAYS,2 TABS X2 DAYS,1 TAB X 2 DAYS 12/24 completed Not Available Not Available Not Available azithromyci n 250 mg tablet TAKE 2 TABLETS (500 MG) BY ORAL ROUTE ONCE DAILY FOR 1 DAY THEN 1 TABLET (250 MG) BY ORAL ROUTE ONCE DAILY FOR 4 DAYS 01/13 completed Not Available Not Available Not Available phentermine 15 mg capsule TAKE 1 CAPSULE BY MOUTH EVERY DAY 09/19 completed Not Available Not Available Not Available phentermine 37.5 mg tablet Take 1 tablet every day by oral route for 30 days. 2024 active Not Available Not Available Not Avai lable ciprofloxac in 500 mg tablet Take 1 tablet every 12 hours by oral route for 10 days. 12/24 completed Not Available Not Available Not Available sulfamethox azole 800 mg-trimetho prim 160 mg tablet 01/12 completed Not Available Not Available Not Available tramadol 50 mg tablet TAKE 1 TABLET BY MOUTH EVERY 6 HOURS FOR 7 DAYS 05/22 completed Not Available Not Available Not Available triamcinolo ne acetonide 0.1 % topical cream APPLY THIN COAT TO AFFECTED AREA TWICE A DAY 01/13 completed Not Available Not Available Not Available phentermine 30 mg capsule TAKE 1 CAPSULE BY MOUTH EVERY DAY 11/08 completed Not Available Not Available Not Available baclofen 20 mg tablet TAKE 1 TABLET BY MOUTH THREE TIMES A DAY NEEDED FOR 14 DAYS 08/22 completed Not Available Not Available Not Available carbamazepi ne ER 400 mg tablet,exte nded release,12 hr TAKE 1 TABLET (400 MG TOTAL) BY MOUTH 2 TIMES A DAY 12/24 completed Not Available Not Available Not Available carbamazepi ne 200 mg tablet TAKE 1 TABLET BY MOUTH EVERY 12 HOURS FOR 30 DAYS 12/24 completed Not Available Not Available Not Available betamethaso ne dipropionat e 0.05 % topical cream APPLY SPARINGLY TO AFFECTED AREA EVERY DAY 12/24 completed Not Available Not Available Not Available gabapentin 100 mg capsule TAKE 1 CAPSULE BY MOUTH THREE TIMES A DAY NEEDED FOR 30 DAYS 12/24 completed Not Available Not Available Not Available scopolamine 1 mg over 3 days transdermal patch APPLY 1 PATCH EVERY 3 DAYS NEEDED 01/13 completed Not Available Not Available Not Available methylpredn isolone 4 mg tablets in a dose pack Take 1 dose pk by oral route. 01/13 completed Not Available Not Available Not Available morphine 15 mg immediate release tablet TAKE 0.5 TABLETS (7.5 MG TOTAL) BY MOUTH EVERY 6 (SIX) HOURS NEEDED FOR PAIN 05/22 completed Not Available Not Available Not Available sertraline 50 mg tablet TAKE 1 TABLET BY MOUTH EVERY DAY 08/22 completed Not Available Not Available Not Available metronidazo le 0.75 % topical gel APPLY TO FACE TWICE DAILY FOR ROSACEA. 01/13 completed Not Available Not Available Not Available doxycycline hyclate 100 mg tablet TAKE 1 TABLET BY MOUTH TWICE A DAY FOR 7 DAYS 12/24 completed Not Available Not Available Not Available amoxicillin 875 mg-potassiu m clavulanate 125 mg tablet TAKE 1 TABLET BY MOUTH EVERY 12 HOURS WITH MEALS FOR 7 DAYS 12/24 completed Not Available Not Available Not Available neomycin-po lymyxin-hyd rocort 3.5 mg-10,000 unit/mL-1 % ear drops,susp INSTILL 4 DROPS INTO AFFECTED EAR(S) BY OTIC ROUTE 3 TIMES PER DAY for 5 days 08/22 completed Not Available Not Available Not Available azelaic acid 15 % topical gel APPLY TO FACE ONCE DAILY FOR ONE WEEK, THEN APPLY TWICE A DAY FOR ROSACEA. 01/13 completed Not Available Not Available Not Available bupropion HCl XL 150 mg 24 hr tablet, extended release Take 1 tablet every day by oral route as directed for 30 days. 2024 active Not Available Not Available Not Avai lable Vitamin D 04/19 completed Not Available Not Available Not Available Centrum Silver 01/13 completed Multi -kevin min; OTC Not Available Not Available Not Available Zyrtec 10 mg capsule Take by oral route. active Not Available Not Available No t Available ivermectin 1 % topical cream APPLY TO FACE ONCE DAILY FOR ROSACEA. active Not Available Not Available No t Available Yuvafem 10 mcg vaginal tablet 1 TABLET VAGINALLY TWICE WEEKLY AT BEDTIME active Not Available Not Available No t Available BinaxNOW COVID-19 Ag Self Test kit TEST DIRECTED TODAY 08/22 completed Not Available Not Available Not Available Wegovy 0.25 mg/0.5 mL subcutaneou s pen injector Inject 0.25 mg every week by subcutane ous route as directed for 30 days. 10/29 completed Not Available Not Available Not Available Opzelura 1.5 % topical cream APPLY A THIN LAYER TO THE AFFECTED AREA(S) BY TOPICAL ROUTE 2 TIMES PER DAY (DO NOT EXCEED 60 GRAMS PER WEEK) 08/22 completed Not Available Not Available Not Available Vitals Date Recorded Body height Body mass index (BMI) Body weight Heart rate Oxygen saturation Systolic And Diastolic Provider Name and Address Organization Details Last Updated DateTime 5 165.1 cm 37.1 kg/m2 576289. 1 g 74 /min 98 % 128/76 mm[Hg] [facility] 10:08:49 Social History Question Answer Notes LastModified by Organizat ion Details LastModified Time Tobacco Smoking Status Never Smoker Not Available [facility] 12/10/2019 03:36:24 What Was The Date Of Your Most Recent Tobacco Screening? 01/13/2025 [email or web address] Information not available 01/13/2025 Sex: Unknown Functional Status Question Answer Note LastModified by Organization D etails LastModified Time Do you or have you ever used any other forms of tobacco or nicotine? No [email or web address] Information not available 12/06/2021 Mental Status None recorded. Family History Relationship Description Onset Age of this Age Resolved Age Notes LastModified by Organization Details LastModified Time Mother History of hypertension [email or web address] Not available 09:57:18 Mother Hypothyroidi sm [email or web address] Not available 2023 09:57:18 Mother Chronic obstructive pulmonary disease smoker [email or web address] Not available 2018 08:22:46 Maternal Grandmother History of hypertension [email or web address] Not available 09:57:18 Maternal Grandmother Diabetes mellitus [email or web address] Not available 2018 08:22:17 Maternal Grandmother Family history of malignant neoplasm Breast cancer - 80 [email or web address] Not available 12/25/2023 09:57:18 Medical History Condition Response Coronary Artery Disease N Gout N Other N Kidney Stones N Blood Diseases N Blood Transfusion N Breast Cancer N Lung Disease N Depression N COPD N Defects or Inherited Disease N Anxiety Disorder N Muscle, Joint, or Bone Problems N Obesity N Vision or Eye Problems N Arthritis N Infertility N Polyps N Mental Disorder N Cancer N Stroke N Varicosities N Endometriosis N Bladder or Kidney Problems N High Cholesterol N Liver Disease N Fibromyalgia N Headaches N Kidney Disease N Allergies/Hayfever N Heart Problems N Hospitalizations N Thyroid Problems N GI Problems N Eating Disorder N Skin Problems N Anemia N MRSA exposure N Constipation N Mental Illness N Diabetes N Ovarian Cancer N Seizures/Epilepsy N Tuberculosis N Congestive Heart Failure (CHF) N Eczema N Abuse/Domestic Violence N Diverticulitis N Asthma N Reflux/GERD N Hepatitis N Heart Disease N Pulmonary Embolism N Hypertension N Chicken Pox N Autism Spectrum Disorder (ASD) N Osteoporosis N Gynecological History Statement/Question Response Most Recent Mammogram 04/16/2018 Obstetrics History GPAL:G 0 P 0 0 0 0 Immunizations Vaccine Type Date Status Note Provider Nam e and Address Organization Details Recorded Time COVID-19, mRNA, LNP-S, PF, 30 mcg/0.3 mL dose 04/25/2020 completed Not Available [facility] 15:14:41 COVID-19, mRNA, LNP-S, PF, 30 mcg/0.3 mL dose 05/16/2020 completed Not Available [facility] 4 15:14:41 COVID-19, mRNA, LNP-S, PF, 100 mcg/0.5mL dose or 50 mcg/0.25mL dose 01/16/2021 completed Not Available [facility] 4 15:14:41 Tdap 03/10/2008 completed Not Available [facility] 03/20/2023 15:14:41 Tdap 08/06/2018 completed Not Available [facility] 03/20/2023 15:14:41 Past Encounters Encounter ID Performer Location Encounter Start Date Encounter Closed Date Diagnosis/Indication Diagnosis SNOMED-CT Code Diagnosis ICD10 Code Diagnosis IMO Codes Diagnosis Note [id number] TERESA TORRE [facility] [address] [facility],[place] [address] 01/13/2025 10:01:26 01/13/2025 13:43:26 Physical examination 6081047 Z00.00 670307 BP is good Vitamin D deficiency 347 46010 E55.9 will recheck her levels Anxiety 27445773 F41.9 73800 Health Concerns Section Related Observation LastModified by Organization Detai ls LastModified Time None Recorded Concern Status LastModified by Organization Details LastModified Time None Recorded Payers Encounter Date Sequence Insurance Name Policy Number Policy Hooper Covered Member ID Hooper Member ID Guarantor Name 01/13/[address] [place] [address] [id number] [facility] [id number] [facility] Notes Date Note Type Note Provider Name a tx Address Organization Details Recorded Time 5 text/html Annual WellnessReported by PatientSocial/Behavio ral HistoryFor diet and nutrition, patient reportshealthy diet,discussed vitamin and supplement use,discussed portion control,discussed maintaining calcium balance, anddiscussed diet improvement. For fracture risk, patient reportsno history of fractures,no recent explained fracture,no sudden unexplained fractures, andno previous musculoskeletal injuries. For physical activity, patient reportsexercises on a regular basis,recent increase in physical activity, andgood physical condition. For additional lifestyle factors, patient reportsno tobacco use,stopped drinking alcohol, anddrinks alcohol (mild-moderate).Menta l Status:For depression risk, patient reportsnever feels sad, empty, or tearful,no loss of interest in activities,no significant changes in weight,no sleep disturbances or insomnia,no agitation,no loss of energy,no feelings of worthlessness or guilt,no thoughts of suicide,no history of depression, andno history of mood disorders.Functional AbilityFor hearing, patient reportsno loss of hearing. For vision, patient reportsno vision problems.ROS as noted in the HPI no change in numbness from previous surgery for the trigeminal neuralgiacould be improve or not, may take years according to neurology TERESA TORRE [address] [place] [address], [phone], [facility] 01/13/2025 10:51:17 OBGyn Episode No OBEpisode recorded.
--- OUTSIDE RECORDS SUMMARY | 2025-01-14 08:04 | XMS_ITS | Encounter Summary ---
Author Organization [facility] Address [address] [place] [address] Phone Care Team Providers Care Manager Deli Name Role Phone Dwayne Palencia DO Unavailable Bina Gonzales CNM Unavailable Mady MeridaC Unavailable [phone] Elmer Alferdo MD Unavailable [phone] Salina Grubbs PREFORM PLATE MAKER Unavailable Debo Wild MD Unavailable [phone] Mallorie Le MD Unavailable [phone] Shae Crowder PREFORM PLATE MAKER Unavailable Dwayne Palencia DO Primary Care Provider [phone] Encounter Details Date Type Department Care Team (Late st Contact Info) Description 2018 Ancillary Orders Virtual Department [address] [place] [address] Dwayne Palencia DO [address] [facility] [address] [place], [place] [id number] Breast screening Social History Tobacco Use Types Packs/Day Years Used Date Smoking Tobacco: Never Assessed Comments Unknown Sex and Gender Information Value Date Recorded Sex Assigned at Female 10/03/2021 11:46 AM EDT Legal Sex Female 9:37 PM EDT Gender Identity Female 10/03/2021 11:46 AM EDT Sexual Orientation Straight 10/03/2021 11 :46 AM EDT documented as of this encounter Plan of Treatment Upcoming Encounters Date Type Department Care Team (Late st Contact Info) Description 08/30/2024 Procedure Pass [address] [address] 04/14/2025 12:30 PM EDT Appointment [address] [address] Dwayne Palencia, [address] [place] [address] documented as of this encounter Results * BI MAMMOGRAM SCREENING WITH TOMOSYNTHESIS WITH CAD (BILATERAL) (04/16/2018 11:42 AM EDT) Anatomical Region Laterality Modality Breast Left, Breast Right, Breast Bilateral Bila teral Mammography 04/16/2018 12:4 2 PM EDT Impressions 04/16/2018 12:44 PM EDT Stable appearance relative to prior imaging. No findings suggestive of malignancy are seen. BI-RADS CATEGORY: 2 - Benign finding. DENSITY: There are scattered fibroglandular densities. POS - [id number] Narrative 04/16/2018 12:44 PM EDT Full-field digital mammography is obtained with computer-aided detection. Comparison with prior imaging from 04/10/2017 is made with older imaging dating back as far as 01/02/2012 also reviewed. There is scattered fibroglandular density evident in the breasts. In addition to 2-D C view imaging, tomosynthesis images are obtained in two projections of each breast. A small subcentimeter well-defined density in the upper outer right breast remains unchanged.. No dominant soft tissue mass of concern, suspicious cluster of calcifications, significant interval skin changes, or architectural distortion is identified. Procedure Note Scott Palma MD - 04/16/2018 Full-field digital mammography is obtained with computer-aided detection.Comparison with prior imaging from 04/10/2017 is made with older imagingdating back as far as 01/02/2012 also reviewed. There is scattered fibroglandular density evident in the breasts. Inaddition to 2-D C view imaging, tomosynthesis images are obtained in twoprojections of each breast. A small subcentimeter well-defined density in the upper outer right breastremains unchanged.. No dominant soft tissue mass of concern, suspiciouscluster of calcifications, significant interval skin changes, orarchitectural distortion is identified. IMPRESSION: Stable appearance relative to prior imaging. No findings suggestive ofmalignancy are seen. BI-RADS CATEGORY: 2 - Benign finding. DENSITY: There are scattered fibroglandular densities. POS - [id number] us Dwayne Palencia DO IMG MG EXAMS Final Result documented in this encounter Visit Diagnoses Diagnosis Breast screening Breast screening, unspecified Breast screening Breast screening, unspecified documented in this encounter Care Teams Manager Deli Relationship Specialty Start Date End Date Dwayne Palencia DO PCP - General 02/09/17 Dwayne Palencia DO Historical LMR Provider 11/27/16 Bina Gonzales CNM [address] [place] [address] Historical LMR Provider 11/27/16 2 Mady Merida PA-C [address] [place] [address] [facility], [place] [address] Historical LMR Provider 11/27/16 02/13/21 Elmer Alfredo MD [address] [place] [address] Historical LMR Provider 11/27/16 Salina Grubbs NP [address] [place] [address] [email or web address] Historical LMR Provider 11/27/16 2 Debo Wild MD [address] [place] [address] Historical LMR Provider 11/27/16 2 Mallorie Le MD [address] [place] [address] Historical LMR Provider 11/27/16 2 Shae Crowder NP [address] [place] [address] Historical LMR Provider 11/27/16 2 documented as of this encounter Additional Source Comments The information contained in this document represents components of the legal health record. It is not the complete legal health record.[facility]
--- OUTSIDE RECORDS SUMMARY | 2025-01-14 08:04 | XMS_ITS | Encounter Summary ---
Author Organization [facility] Address [address] [place] [address] [place] [address] Phone Care Team Providers Care Wireless Store Manager Name Role Phone Dwayne Palencia DO Unavailable Dwayne Palencia DO Primary Care Provider [phone] Encounter Details Date Type Department Care Team (Latest Contact Info) Description 05/03/2023 Transcribe Orders Virtual Department [address] [place] [address] Kasandra Brenner PA [address] [facility] [place] [address] Migraine without status migrainosus, not intractable, unspecified migraine type (Primary Dx) Social History Tobacco Use Types Packs/Day Years [...] with a working camera? Not on file Comments No Sex and Gender Information Value Date Recorded Sex Assigned at Female 10/03/2021 11:46 AM EDT Legal Sex Female 9:37 PM EDT Gender Identity Female 10/03/2021 11:46 AM EDT Sexual Orientation Straight 10/03/2021 11 :46 AM EDT documented as of this encounter Plan of Treatment Upcoming Encounters Date Type Department Care Team (Late st Contact Info) Description 08/30/2024 Procedure Pass [address] [address] 04/14/2025 12:30 PM EDT Appointment [address] [address] Dwayne Palencia DO [address] [facility] [place] [address] documented as of this encounter Visit Diagnoses Diagnosis Migraine without status migrainosus, not intractable, unspecified migraine type- Primary documented in this encounter Care Teams Wireless Store Manager Relationship Specialty Start Date End Date Dwayne Palencia DO PCP - General 02/09/17 Dwayne Palencia DO Historical LMR Provider 11/27/16 documented as of this encounter Additional Source Comments The information contained in this document represents components of the legal health record. It is not the complete legal health record.[facility]
--- OUTSIDE RECORDS SUMMARY | 2025-01-14 08:04 | XMS_ITS | Encounter Summary ---
Author Organization [facility] Address [address] [place] [address] Phone Care Team Providers Care Top Edge Beveler Name Role Phone Dwayne Palencia DO Unavailable Dwayne Palencia DO Primary Care Provider [phone] Encounter Details Date Type Department Care Team (Late st Contact Info) Description 07/16/2021 Procedure Pass [address] [address] Social History Tobacco Use Types Packs/Day Years [...] st Contact Info) Description 08/30/2024 Procedure Pass [address] [address] 04/14/2025 12:30 PM EDT Appointment [address] [address] Dwayne Palencia DO [address] [facility] [address] [place], [place] [id number] [email or web address] documented as of this encounter Visit Diagnoses Not on filedocumented in this encounter Care Teams Top Edge Beveler Relationship Specialty Start Date End Date Kekegerri Dwayne SolitarioDO [email or web address] PCP - General 02/09/17 Dwayne Palencia DO [email or web address] Historical LMR Provider 11/27/16 documented as of this encounter Additional Source Comments The information contained in this document represents components of the legal health record. It is not the complete legal health record.[facility]
--- OUTSIDE RECORDS SUMMARY | 2025-01-14 08:04 | XMS_ITS | Encounter Summary ---
Author Organization [facility] Address [address] [place] [id number] Phone Care Team Providers Care Mash Tub Cooker Name Role Phone Dwayne Palencia DO Unavailable KekeDwayne talley Primary Care Provider [phone] Encounter Details Date Type Department Care Team (Late st Contact Info) Description 07/14/2022 Procedure Pass [facility], [address] [address] Social History Tobacco Use Types Packs/Day Years [...] st Contact Info) Description 08/30/2024 Procedure Pass [facility], [address] [address] 04/14/2025 12:30 PM EDT Appointment [address] [address] Dwayne Palencia DO [address] [place] [address] [email or web address] documented as of this encounter Visit Diagnoses Not on filedocumented in this encounter Care Teams Mash Tub Cooker Relationship Specialty Start Date End Date Dwayne Palencia DO [email or web address] PCP - General 02/09/17 Dwayne Palencia DO [email or web address] Historical LMR Provider 11/27/16 documented as of this encounter Additional Source Comments The information contained in this document represents components of the legal health record. It is not the complete legal health record.[facility]
--- OUTSIDE RECORDS SUMMARY | 2025-01-14 08:04 | XMS_ITS | Encounter Summary ---
Author Organization [facility] Address [address] [place] [address] Phone Care Team Providers Care Recovery Engineer Name Role Phone Dwayne Palencia DO Unavailable Bina Gonzales CNM Unavailable Mady MeridaC Unavailable [phone] Elmer Alfredo MD Unavailable Salina Grubbs EMISSIONS REPAIR TECHNICIAN Unavailable Debo Wild MD Unavailable [phone] Mallorie Le MD Unavailable [phone] Shae Crowder EMISSIONS REPAIR TECHNICIAN Unavailable Dwayne Palencia DO Primary Care Provider [phone] Encounter Details Date Type Department Care Team (Late st Contact Info) Description 03/06/2017 Ancillary Orders Virtual Department [address] [place] [address] Dwayne Palencia DO [address] [facility] [address] [place], [place] [id number] Breast screening Social History Tobacco Use Types [...] st Contact Info) Description 08/30/2024 Procedure Pass [address] [address] 04/14/2025 12:30 PM EDT Appointment [address] [address] Dwayne Palencia, [address] [facility] [place] [address] documented as of this encounter Results * BI MAMMOGRAM SCREENING WITH TOMOSYNTHESIS WITH CAD (BILATERAL) (04/10/2017 12:35 PM EST) Anatomical Region Laterality Modality Breast Left, Breast Right, Breast Bilateral Bila teral Mammography 04/10/2017 1:01 PM EST Impressions 04/10/2017 1:04 PM EST Stable appearance relative to prior imaging. No findings suggestive of malignancy are seen. BI-RADS CATEGORY: 2 - Benign finding. DENSITY: There are scattered fibroglandular densities. POS - [id number] Narrative 04/10/2017 1:04 PM EST Full-field digital mammography is obtained with computer-aided detection. Comparison with prior imaging from 04/04/2016 is made with older imaging dating back as far as 12/13/2010 also reviewed. There is scattered fibroglandular density evident in the breasts. In addition to 2-D C view imaging, tomosynthesis images are obtained in two projections of each breast. A small 4 mm well-defined nodule in the upper outer right breast is unchanged.. No dominant soft tissue mass of concern, suspicious cluster of calcifications, significant interval skin changes, or architectural distortion is identified. Procedure Note Scott Palma MD - 04/10/2017 Full-field digital mammography is obtained with computer-aided detection.Comparison with prior imaging from 04/04/2016 is made with older imagingdating back as far as 12/13/2010 also reviewed. There is scattered fibroglandular density evident in the breasts. Inaddition to 2-D C view imaging, tomosynthesis images are obtained in twoprojections of each breast. A small 4 mm well-defined nodule in the upper outer right breast isunchanged.. No dominant soft tissue mass of concern, suspicious clusterof calcifications, significant interval skin changes, or architecturaldistortion is identified. IMPRESSION: Stable appearance relative to prior imaging. No findings suggestive ofmalignancy are seen. BI-RADS CATEGORY: 2 - Benign finding. DENSITY: There are scattered fibroglandular densities. POS - [id number] us Dwayne Palencia DO IMG MG EXAMS Final Result documented in this encounter Visit Diagnoses Diagnosis Breast screening Breast screening, unspecified Breast screening Breast screening, unspecified documented in this encounter Care Teams Recovery Engineer Relationship Specialty Start Date End Date Dwayne Palencia DO PCP - General 02/09/17 Dwayne Palencia DO Historical LMR Provider 11/27/16 Bina Gonzales CNM [address] [place] [address] Historical LMR Provider 11/27/16 2 Mady Merida PA-C [address] [place] [address] [facility], [place] [address] Historical LMR Provider 11/27/16 02/13/21 Elmer Alfredo MD [address] [place] [address] Historical LMR Provider 11/27/16 Salina Grubbs NP [address] [place] [address] [email or web address] Historical LMR Provider 11/27/16 2 Debo Wild MD [address] [place] [address] Historical LMR Provider 11/27/16 2 Mallorie Le MD [address] [place] [address] Historical LMR Provider 11/27/16 2 Shae Crowder NP [address] [place] [address] Historical LMR Provider 11/27/16 2 documented as of this encounter Additional Source Comments The information contained in this document represents components of the legal health record. It is not the complete legal health record.[facility]
--- OUTSIDE RECORDS SUMMARY | 2025-01-14 08:04 | XMS_ITS | Encounter Summary ---
Author Organization [facility] Address [address] [place] [address] [place] [phone] Phone Care Team Providers Care Refractory Specialist Name Role Phone Dwayne Palencia DO Unavailable Dwayne Palencia DO Primary Care Provider [phone] Encounter Details Date Type Department Care Team (Latest Contact Info) Description 05/17/2023 Transcribe Orders Virtual Department [address] [place] [address] Kasandra Brenner PA [address] [facility] [place] [address] [place] [address] Migraine without status migrainosus, not intractable, unspecified [...] st Contact Info) Description 08/30/2024 Procedure Pass [address] [address] 04/14/2025 12:30 PM EDT Appointment [address] [address] Dwayne Palencia DO [address] [facility] [place] [address] documented as of this encounter Visit Diagnoses Diagnosis Migraine without status migrainosus, not intractable, unspecified migraine type- Primary documented in this encounter Care Teams Refractory Specialist Relationship Specialty Start Date End Date Dwayne Palencia DO PCP - General 02/09/17 Dwayne Palencia DO Historical LMR Provider 11/27/16 documented as of this encounter Additional Source Comments The information contained in this document represents components of the legal health record. It is not the complete legal health record.[facility]
[2025-01-14 13:52] LABS: MANUAL DIFF FLAG NO
[2025-01-14 13:56] LABS: Hematocrit 44.4 % (37.0-47.0); Hemoglobin 15.1 g/dl (12.0-16.0); Imm Gran Abs Auto 0.01 X10*3/uL (0.00-0.03); Imm Gran Pct Auto 0.2 % (0.0-0.4); Lymphocytes Absolute Auto 2.4 X10*3/uL (1.2-4.9); Mean Corpuscular HGB Conc 34.0 g/dl (31.0-35.0); Mean Corpuscular Hemoglobin 31.0 pg (27.0-33.0); Mean Corpuscular Volume 91.2 fL (80.0-98.0); NRBC Abs Auto 0.000 X10*3/uL (0.0-0.012); NRBC Pct Auto 0.0 /100WBC (0.0-0.2); Platelet Count 289 X10*3/uL (160-400); Red Blood Count 4.87 X10*6/uL (4.20-5.50); White Blood Count 6.6 X10*3/uL (4.8-10.8)
[2025-01-14 14:51] LABS: Alanine Aminotransferase 21 U/L (0-31); Albumin Level 4.3 g/dL (3.5-5.0); Alkaline Phosphatase 70 U/L (39-117); Anion Gap 8 (12-20); Aspartate Amino Transferase 22 U/L (5-31); Blood Urea Nitrogen 20 mg/dL (9-16); Calcium 9.1 mg/dL (8.4-10.2); Carbon Dioxide 29 mmol/L (22-29); Chloride 109 mmol/L (96-108); Cholesterol 158 mg/dL (<200); Estimated Glomerular Filt Rate > 60; HDL Cholesterol 59 mg/dL (>40); Potassium 4.1 mmol/L (3.3-5.1); Sodium 142 mmol/L (135-145); Total Protein 6.9 g/dL (6.5-8.0); Triglycerides 93 mg/dL (<150)
== END 2025-01-14 07:40 | disposition home or self-care (01) ==
LOC: HO.MANLDS 07:39
PROVIDERS: Visit Provider Physician Assistant
DX: Z00.00 Encounter for general adult medical examination without abnormal findings (principal); Z13.1 Encounter for screening for diabetes mellitus; Z13.6 Encounter for screening for cardiovascular disorders; Z13.29 Encounter for screening for other suspected endocrine disorder; E55.9 Vitamin D deficiency, unspecified
CPT/HCPCS: 36415; 80053; 80061; 82306; 83036; 84443; 85025